=== PATIENT | male | born 1980 | race African-American/Black ===

== ENCOUNTER 2018-05-04 08:12 | Emergency (ER) | payer SELFPAY ==
[2018-05-04 08:44] LABS: #Eosinphils 0.1 thou/uL (0.0-0.7); #Lymphocytes 1.7 thou/uL (1.20-3.40); #Monocytes 0.4 thou/uL (0.11-0.59); %Basophils 0.3 % (0.0-1.0); %Eosinophils 2.7 % (0.0-10.0); %Lymphocytes 33.2 % (21.0-51.0); %Monocytes 7.3 % (0.0-10.0); %Neutrophils 56.5 % (42.0-75.0); Hemoglobin 16.6 g/dL (14.0-18.0); Mean Corpuscular HGB CONC 34.5 g/dL (32.0-36.0); Mean Corpuscular Hemoglobin 30.5 pg (27.0-31.0); Mean Corpuscular Volume 88.5 fl (80.0-94.0); Mean Platelet Volume 6.6 fL (7.4-10.4); Platelet Count 243 thou/uL (130-400); RBC Distribution Width 11.1 % (11.5-14.5); Red Blood Cell (RBC) Count 5.44 mill/uL (4.70-6.10); White Blood Cell (WBC) Count 5.2 thou/uL (4.8-10.8)
[2018-05-04 09:06] LABS: ALT (SGPT) 26 U/L (8-55); AST (SGOT) 18 U/L (5-34); Albumin 4.4 g/dL (3.5-5.0); Alkaline Phosphatase 116 U/L (40-150); Anion Gap 14 mmol/L (10-20); BUN (Urea Nitrogen) 14 mg/dL (8.9-20.6); Bilirubin, Total 0.5 mg/dL (0.2-1.2); Calc. Creatinine Clearance 0 mL/min (70-130); Calcium 9.8 mg/dL (7.8-10.44); Carbon Dioxide 25 mmol/L (22-29); Chloride 106 mmol/L (98-107); Estimated GFR-MDRD 86; Globulin 3.2 g/dL (2.4-3.5); Glucose 104 mg/dL (70-105); Potassium 3.8 mmol/L (3.5-5.1); Protein, Total 7.6 g/dL (6.0-8.3); Sodium 141 mmol/L (136-145)
--- NOTE | 2018-05-04 10:37 | RAD ---
KUB AND UPRIGHT AND PA CHEST: Date: 05/04/18 HISTORY: Abdominal pain, left arm swelling. FINDINGS: The bowel gas pattern is nonobstructive. No free air. No radiopaque calculi or bony finding. Heart size and mediastinum are within normal limits. Lungs are clear of infiltrative process. IMPRESSION: 1. No active intrathoracic disease. 2. No acute findings to the abdomen. POS: [facility] [place]
[2018-05-04 10:43] LABS: Bilirubin Negative (Negative); Blood, Urine Negative (Negative); Clarity CLEAR (Clear); Glucose, Urine (Dipstick) Negative (Negative); Leukocyte Negative (Negative); Nitrite Negative (Negative); Protein, Urine (Dipstick) Negative (Neg-Trace); Specific Gravity, Urine 1.025 (1.002-1.036); pH, Urine 6.5 (5.0-9.0)
--- NOTE | 2018-05-04 10:57 | ULT ---
LEFT UPPER EXTREMITY VENOUS DUPLEX EXAM: Date: 05/04/18 HISTORY: Left arm swelling. FINDINGS: Real-time color Doppler evaluation of the left upper extremity was performed to include the internal jugular, subclavian, axillary, brachial, basilic, and cephalic veins. This shows patent deep venous s ystem with normal compressibility and augmentation. IMPRESSION: No evidence of deep venous thrombosis of the left upper extremity. POS: [facility]
== END 2018-05-04 12:59 | disposition home or self-care (01) ==
LOC: ERS 08:12
DX: T78.1XXA Other adverse food reactions, not elsewhere classified, initial encounter (principal); K59.00 Constipation, unspecified
CPT/HCPCS: 36415; 74022; 80053; 81003; 83690; 85025; 87081; 87430

== ENCOUNTER 2019-11-18 10:14 | Emergency (ER) | payer SELFPAY ==
--- NOTE | 2019-11-18 11:29 | RAD ---
EXAM: Chest 2 views: HISTORY: Left chest pain COMPARISON: None. FINDINGS: There is a normal-sized cardiomediastinal silhouette. There is no evidence of consolidation, mass, or pleural effusion. The bones are unremarkable. IMPRESSION: No evidence of acute cardiopulmonary disease
== END 2019-11-18 12:38 | disposition home or self-care (01) ==
LOC: ERS 10:14
DX: S29.011A Strain of muscle and tendon of front wall of thorax, initial encounter (principal); S21.102A Unspecified open wound of left front wall of thorax without penetration into thoracic cavity, initial encounter; X50.1XXA Overexertion from prolonged static or awkward postures, initial encounter
CPT/HCPCS: 71046; 93005

== ENCOUNTER 2021-03-13 11:53 | Outpatient (CLI) | payer OTHER | END 2021-03-13 11:54 | disposition home or self-care (01) | LOC: BICRAD 11:53 | PROVIDERS: ATTEND Family Medicine | DX: M79.672 Pain in left foot (principal); M19.072 Primary osteoarthritis, left ankle and foot; M21.42 Flat foot [pes planus] (acquired), left foot; M77.32 Calcaneal spur, left foot ==